=== PATIENT | male | born 1970 | race Two or more races ===

== ENCOUNTER 2023-06-14 13:02 | Emergency (ER) | payer MEDICAID ==
[~2023-06-14] VITALS: Ht 170.2 cm; Wt 80.8 kg
[2023-06-14 15:18] VITALS: BP 173/97; PULSE 100; RESP 19; TEMP 97; O2SAT 100
[2023-06-14] MEDS ORDERED: IBUP-1456 PO (15:57)
[2023-06-14] MEDS ORDERED: CYCL-614 PO (15:57)
[2023-06-14] MEDS: KETOROLAC TROMETH 60MG/2ML VIAL IM ONE (16:04)
== END 2023-06-14 16:11 | disposition home or self-care (01) ==
LOC: ER 13:02
DX: G89.29 Other chronic pain (principal); M79.621 Pain in right upper arm
CPT/HCPCS: 96372; 99283; J1885

== ENCOUNTER 2024-03-28 04:07 | Emergency (ER) | payer MEDICAID ==
[~2024-03-28] VITALS: Ht 170.2 cm; Wt 78.8 kg
[~2024-03-28 04:07] MED LIST: CYCL-614 PO; IBUP-1456 PO
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
[2024-03-28 05:30] VITALS: BP 132/77; PULSE 99; RESP 18; TEMP 97.4; O2SAT 98
[2024-03-28] MEDS ORDERED: GABA-1308 PO (05:39)
[2024-03-28] MEDS ORDERED: TIZA4TAB9 PO (05:39)
[2024-03-28] MEDS: KETOROLAC TROMETH 60MG/2ML VIAL IM ONE (06:15)
== END 2024-03-28 06:29 | disposition home or self-care (01) ==
LOC: ER 04:07
DX: G89.29 Other chronic pain (principal); M79.601 Pain in right arm; M79.2 Neuralgia and neuritis, unspecified; Z79.899 Other long term (current) drug therapy
CPT/HCPCS: 96372; 99283; J1885